=== PATIENT | female | born 1955 | race African-American/Black ===

== ENCOUNTER 2018-01-23 10:45 | Observation (INO) | payer OTHER ==
[2018-01-23] MEDS ORDERED: Nitroglycerin 2% Ointment 1 INCH/1 GM Packet ONE (11:16)
[2018-01-23 11:22] LABS: #Basophils 0.1 thou/uL (0.0-0.2); #Eosinphils 0.4 thou/uL (0.0-0.7); #Lymphocytes 1.8 thou/uL (1.20-3.40); #Monocytes 1.1 thou/uL (0.11-0.59); #Neutrophils 6.2 thou/uL (1.40-6.50); %Eosinophils 3.7 % (0.0-10.0); %Monocytes 11.8 % (0.0-10.0); %Neutrophils 64.4 % (42.0-75.0); Mean Corpuscular HGB CONC 32.2 g/dL (32.0-36.0); Mean Corpuscular Hemoglobin 27.9 pg (27.0-31.0); Mean Corpuscular Volume 86.6 fl (81.0-99.0); Mean Platelet Volume 7.3 fL (7.4-10.4); Platelet Count 281 thou/uL (130-400); RBC Distribution Width 13.7 % (11.5-14.5); White Blood Cell (WBC) Count 9.6 thou/uL (4.8-10.8)
--- NOTE | 2018-01-23 11:23 | RAD ---
PORTABLE CHEST: Date: 01/23/18 PROVIDED CLINICAL HISTORY: Chest pain and shortness of breath. FINDINGS: Cardiac and mediastinal silhouette is within normal limits. Evaluation is limited by patient both hab itus. There is prominence of the pulmonary vasculature and pulmonary interstitium. Air space disease at the right lung base is suspected. No pleural fluid or pneumothorax evident. IMPRESSION: 1. Right basilar air space disease which may reflect pneumonia or edema. 2. Pulmonary vascular congestion suggests congestive failure. POS: NOAHH
[2018-01-23 11:39] LABS: ALT (SGPT) 14 U/L (8-55); AST (SGOT) 16 U/L (5-34); Albumin 3.7 g/dL (3.4-4.8); Alkaline Phosphatase 69 U/L (40-150); Anion Gap 15 mmol/L (10-20); BUN (Urea Nitrogen) 24 mg/dL (9.8-20.1); Bilirubin, Total 0.3 mg/dL (0.2-1.2); CK (CPK) 125 U/L (29-168); Calc. Creatinine Clearance 0 mL/min (70-130); Calcium 9.6 mg/dL (7.8-10.44); Carbon Dioxide 26 mmol/L (23-31); Chloride 105 mmol/L (98-107); Estimated GFR-MDRD 35; Globulin 3.9 g/dL (2.4-3.5); Glucose 157 mg/dL (80-115); Lipase 23 U/L (8-78); Potassium 4.8 mmol/L (3.5-5.1); Protein, Total 7.6 g/dL (6.0-8.3); Sodium 141 mmol/L (136-145)
[2018-01-23 11:43] LABS: CKMB 2.4 ng/mL (0-6.6); Troponin I Less than 0.010 ng/mL (< 0.028)
[2018-01-23] MEDS ORDERED: Furosemide 20 MG/2 ML VIAL ONE (12:50)
--- NOTE | 2018-01-23 13:06 | PDOC.FPRHP ---
- History of Present Illness Chief Complaint: New onset CHF History of Present Illness: This stable 62 yo F is being admitted to the hospital for workup new onset CHF. She has a PMH including obesity, DM2, CKD III, HTN, and HLD. She states that this morning while at work she experienced sudden onset of chest pain on the left side of her chest described as "someone sitting on me." She states the pain was at worst about 8/10. It was relieved with nitro but not with rest. It lasted about 45 min per her report. She did experience shortness of breath but not diaphoresis. She has never had pain like this before. She has been having decreased exercise tolerance for the last week or so and denies orthopnea. She has noticed some increased swelling for the last month or so. She was scheduled for outpatient stress and echo at the end of this month. ED Course: nitro, lasix, ASA - Allergies/Adverse Reactions Allergies Allergy/AdvReac Type Severity Reaction Status Date / Time No Known Drug Allergies Allergy Verified 01/23/18 13:43 - Home Medications Medication Instructions Recorded Confirmed Type Aspirin [Aspir-Low] 81 mg PO DAILY 01/23/18 01/23/18 History Atorvastatin Calcium [Lipitor] 10 mg PO DAILY 01/23/18 01/23/18 History Benazepril HCl [Benazepril HCl] 1 tab PO BID 01/23/18 01/23/18 History Cholecalciferol (Vitamin D3) 1,000 unit PO DAILY 01/23/18 01/23/18 History [Vitamin D] Estradiol [Estradiol] 1 tab PO DAILY 01/23/18 01/23/18 History Hydrochlorothiazide 1 tab PO BID 01/23/18 01/23/18 History [Hydrochlorothiazide] NIFEdipine [Nifedipine ER] 60 mg PO DAILY 01/23/18 01/23/18 History Vit,Rakan 74/Iron/Folic 1 tab PO DAILY 01/23/18 01/23/18 History [Vol-Plus Tablet] glyBURIDE [Glyburide] 1 tab PO BID 01/23/18 01/23/18 History hydrALAZINE HCl [Hydralazine HCl] 1 tab PO BID 01/23/18 01/23/18 History metFORMIN HCl [Metformin HCl] 1 tab PO BID 01/23/18 01/23/18 History - History PMHx: DM, CKDIII, HTN, HLD PSHx: hysterectomy FHx: no heart disease, ovarian cancer in mother Social: denies tobacco, alcohol, or drugs - Review of Systems General: denies: fever/chills, weight/appetite/sleep changes Eyes: denies: eye pain, vision changes ENT: denies: nasal congestion, rhinorrhea Respiratory: reports: exercise intolerance. denies: cough, shortness of breath Cardiovascular: reports: chest pain, palpitation, edema. denies: orthopnea Gastrointestinal: reports: nausea. denies: vomiting, diarrhea, constipation, abdominal pain Genitourinary: denies: incontinence, dysuria Skin: denies: rashes, itching Musculoskeletal: reports: swelling. denies: pain, arthritis/arthralgias Neurological: denies: numbness, weakness Psychological: denies: anxiety, depression - Vital signs BP: [134/86] HR: [90] RR: [18] Tmax: [98.5] Pox: [96]% on [RA] Wt: [35.1 kg] - Physical Exam Constitutional: NAD HEENT: normocephalic and atraumatic, PERRLA, MMM Neck: supple, FROM Heart: RRR, normal S1/S2, pulses present -Heart: +1 edema on the left lower extremity Lungs: CTAB, good air movement, no rales/rhonchi Abdomen: soft, non-tender, bowel sounds present, no masses/distention Musculoskeletal: normal structure, ROM grossly normal Neurological: no focal deficit, CN II-XII intact Skin: no rash/lesions, capillary refill <2 seconds Heme/Lymphatic: no unusual bruising or bleeding, no petechia Psychiatric: normal mood and affect, good judgment and insight FMR H&P: Results - Labs Result Diagrams: 01/24/18 03:46 01/24/18 03:46 Lab results: WBC 9.6 thou/uL (4.8-10.8) 01/23/18 11:13 Hgb 10.0 g/dL (12.0-16.0) L 01/23/18 11:13 Hct 31.1 % (36.0-47.0) L 01/23/18 11:13 MCV 86.6 fl (81.0-99.0) 01/23/18 11:13 Plt Count 281 thou/uL (130-400) 01/23/18 11:13 Neutrophils % 64.4 % (42.0-75.0) 01/23/18 11:13 Sodium 141 mmol/L (136-145) 01/23/18 11:13 Potassium 4.8 mmol/L (3.5-5.1) 01/23/18 11:13 Chloride 105 mmol/L (98-107) 01/23/18 11:13 Carbon Dioxide 26 mmol/L (23-31) 01/23/18 11:13 BUN 24 mg/dL (9.8-20.1) H 01/23/18 11:13 Creatinine 1.79 mg/dL (0.6-1.1) H 01/23/18 11:13 Glucose 157 mg/dL (80-115) H 01/23/18 11:13 Calcium 9.6 mg/dL (7.8-10.44) 01/23/18 11:13 Total Bilirubin 0.3 mg/dL (0.2-1.2) 01/23/18 11:13 AST 16 U/L (5-34) 01/23/18 11:13 ALT 14 U/L (8-55) 01/23/18 11:13 Alkaline Phosphatase 69 U/L (40-150) 01/23/18 11:13 Creatine Kinase 125 U/L (29-168) 01/23/18 11:13 CK-MB (CK-2) 2.4 ng/mL (0-6.6) 01/23/18 11:13 B-Natriuretic Peptide 565.3 pg/mL (0-100) H 01/23/18 11:13 Serum Total Protein 7.6 g/dL (6.0-8.3) 01/23/18 11:13 Albumin 3.7 g/dL (3.4-4.8) 01/23/18 11:13 Lipase 23 U/L (8-78) 01/23/18 11:13 - EKG Interpretation EKG: sinus rhythm, SD interval 202, no st changes FMR H&P: A/P - Problem List (1) CHF (congestive heart failure) Current Visit: Yes Status: Acute Code(s): I50.9 - HEART FAILURE, UNSPECIFIED (2) HLD (hyperlipidemia) Current Visit: Yes Status: Acute Code(s): E78.5 - HYPERLIPIDEMIA, UNSPECIFIED (3) HTN (hypertension) Current Visit: Yes Status: Acute Code(s): I10 - ESSENTIAL (PRIMARY) HYPERTENSION (4) CKD stage 3 due to type 2 diabetes mellitus Current Visit: Yes Status: Acute Code(s): E11.22 - TYPE 2 DIABETES MELLITUS W DIABETIC CHRONIC KIDNEY DISEASE; N18.3 - CHRONIC KIDNEY DISEASE, STAGE 3 ( MODERATE) (5) DM2 (diabetes mellitus, type 2) Current Visit: Yes Status: Acute - Plan # New onset CHF - diagnosed in clinic, scheduled for outpt. workup at the end of the month - Echo, poncho stress fabien AM - Consult cardiology in the AM - Lasix 40 IV in ED, 40 mg IV tonight - Atorvastatin 40, ASA - hold BB 2/2 stress # Chest pain - inital trop neg - trend - EKG unremarkable - Nitropaste PRN # Leg swelling - bilateral doppler US # HTN - home meds # HLD - home meds # DM2 - metformin 1000mg BID - Glyburide 5mg # CKD 3 - trend cr # PPx - lovenox, SCDs # Code - full # Diet - HH, NPO at midnight FMR H&P: Upper Level - Pertinent history This is a 62 yo AAF who p/w cc of chest pain this am. While cooking at work at approx 545 this am, pt began to feel chest pressure like "someone was sitting on me" which was substernal and a/w SOB. No diaphoresis, nausea, dizziness, syncope. Came to ED due to concerning sxs, which were relieved with nitro administration in ED. Last stress "a long time ago" and was reportedly abnormal per pt, but does not recall having stents placed/cath performed. She also endorses 2 wks of ACKERMAN and exercise intolerance, as well as LE edema. No baseline orthopnea aside from last night. Denies PND. She has been seen in the outpt setting (01/14/18) by Dr. Dowd who suspected CHF and switched HCTZ to 20mg lasix recently. He had planned for outpt lexiscan stress and echo upcoming. States her sxs were concerning bc this is what her mother experienced with "fluid on her lungs" which is why she sought care this am. PMHx obesity, IDDM2, CKD III, HTN, HLD. - Pertinent findings Pertinent PE: obese, pleasant well-appearing female in no respiratory distress with diminshed breath sounds in bilateral lower lobes with faint crackles in Rt lung base heart- RRR no mrg; LE- trace edema in RLE, 2+ edema in LLE VSS, no hypoxia Labs: nml CBC CMP sig for Cr = 1.79, gfr = 35 (at baseline) CE # 1 neg BNP 565 CXR- diffuse pulmonary vascular congestion with blunted costophrenic angles bilaterally and cardiomegaly (increased since 2016 CXR comparison). - Plan Date/Time: 01/23/18 1305 62yo AAF w/ PMHx IDDM2, HTN, HLD, tachycardia (unspecified per pt), and CKD 3 who presents with: 1) New onset suspected CHF- remote echo in 2006 per records shows EF 40% and consulted with Dr. Dowd recently to work up for CHF but pt has been awaiting outpt studies. Hx c/w clinical CHF given ACKERMAN + LE edema and risk factors as well as CXR findings, physical exam, and elevated BNP. Will treat as CHF exacerbation in hospital-- daily wts, strict I&Os, lasix IV and monitor labs. Order TTE. consult cards in am. 2) Typical chest pain- concern for underlying CAD given new onset CHF and recent chest pressure resolved with ntg. will trend troponins & EKGs, continue symptomatic mgmt with ACS rx and order lexiscan stress test. 3) HTN- continue home meds. HH diet. 4) IDDM2- continue insulin per home mgmt. DM diet. 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 6) CKD3- monitor BMP qd given CKD3 and needed diuresis for CHF to avoid worsened renal fxn. monitor. 7) HLD- high intensity statin. I, [Naila Valdez DO], have evaluated this patient and agree with findings/plan as outlined by internal control analyst resident. Pertinent changes/additions are listed in my addendum. Attending Addendum - Attending Addendum Date/Time: 01/24/18 0930 I personally evaluated the patient and discussed the management with Dr. Bojorquez and José Miguel. I agree with the History, Examination, Assessment and Plan documented above with any addition or exceptions noted below.
[2018-01-23] MEDS ORDERED: Enoxaparin Sodium 30 MG/0.3 ML SYRINGE SC SCH (13:42)
[2018-01-23] MEDS ORDERED: Ondansetron ODT 4 MG TAB PO PRN (13:42)
[2018-01-23 13:46] VITALS: BMI 35.1
[2018-01-23 14:28] LABS: Troponin I Less than 0.010 ng/mL (< 0.028)
[2018-01-23] MEDS ORDERED: Dextrose 5% in Water 1,000 ML IV PRN (15:02)
[2018-01-23] MEDS ORDERED: Dextrose 50% Abboject 50 ML SYRINGE SLOW IVP PRN (15:02)
[2018-01-23] MEDS ORDERED: HumaLOG 300 UNITS/3 ML VIAL SC PRN ×2 (15:02)
[2018-01-23] MEDS ORDERED: Nitroglycerin 2% Ointment 1 INCH/1 GM Packet TOP PRN (15:05)
[2018-01-23] MEDS ORDERED: Nitroglycerin 0.4 MG TAB (25 Tab Bottle) SL PRN (15:05)
[2018-01-23 15:37] LABS: Hemoglobin A1c 6.8 % (4.0-6.0)
[2018-01-23] MEDS ORDERED: Furosemide 40 MG/4 ML VIAL SLOW IVP SCH (17:15)
[2018-01-23] MEDS: metFORMIN 500 MG TAB PO SCH (17:21)
[2018-01-23 17:55] LABS: Troponin I Less than 0.010 ng/mL (< 0.028)
--- NOTE | 2018-01-23 17:55 | ULT ---
BILATERAL LOWER EXTERMITY VENOUS DOPPLE ULTRASOUND: History: Bilateral lower extremity edema, left greater than right. New diagnosis of CHF. Technique: Grayscale, color flow, and spectral doppler imaging of the dependent systems of the lower extremities were performed bilaterally. 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 IMPRESSION: No evidence of DVT in either lower extremity. POS: MONAE
--- NOTE | 2018-01-23 22:17 | PDOC.EVN ---
Event Note - Event Note Event Note: Attending note 62 y/o female with PMH HFrEF, HTN, CKD, DM presents with midline substernal chest pain described as someone sitting on her that started while she was going out to her car. Denies any nausea or diaphoresis with the episode, no radiation. Did have associated feet heaviness. Has never happend before. Is now resolved. For PMH/PSH/meds/all/SH/FH please see Dr. Bojorquez's note. Exam: vitals reviewed RRR s M, bilateral LE pitting edema CTAB s w/r/r at the time I saw her BS+, NTTP A/P: Chest pain -medical management -cardiology consultation in AM HFrEF with exacerbation -lasix -continue medical management HTN, DM -home meds, monitor Low TSH -check FT4 DVT/gi ppx
[2018-01-23] MEDS: hydrALAZINE 25 MG TAB PO SCH (22:20)
[2018-01-23] MEDS: Famotidine 20 MG TAB PO SCH (22:20)
[2018-01-24 05:02] LABS: Anion Gap 10 mmol/L (10-20); BUN (Urea Nitrogen) 26 mg/dL (9.8-20.1); Calc. Creatinine Clearance 45 mL/min (70-130); Calcium 9.1 mg/dL (7.8-10.44); Carbon Dioxide 30 mmol/L (23-31); Cardiac Risk 4.4 (Less than 4.5); Chloride 103 mmol/L (98-107); Cholesterol 172 mg/dl (< 200 Desired); Estimated GFR-MDRD 32; Glucose 151 mg/dL (80-115); HDL Cholesterol 39 mg/dL (>60 Neg Risk); LDL Cholesterol, Calculated 109 mg/dL; Potassium 4.1 mmol/L (3.5-5.1); Sodium 139 mmol/L (136-145); Triglycerides 122 mg/dL (Less than 150)
[2018-01-24 05:12] LABS: Band 1 % (5-11); Eosinophils 2 % (0-10); Hemoglobin 9.2 g/dL (12.0-16.0); Lymphocytes 27 % (21-51); MDiff Complete? YES; Mean Corpuscular HGB CONC 32.7 g/dL (32.0-36.0); Mean Corpuscular Hemoglobin 27.9 pg (27.0-31.0); Mean Corpuscular Volume 85.2 fl (81.0-99.0); Monocytes 15 % (0-10); Neutrophil 53 % (42-75); PLT Morphology Comment Appears Adequate; Platelet Count 268 thou/uL (130-400); RBC Distribution Width 13.5 % (11.5-14.5); Red Blood Cell (RBC) Count 3.29 mill/uL (4.20-5.40); White Blood Cell (WBC) Count 7.2 thou/uL (4.8-10.8)
--- NOTE | 2018-01-24 06:03 | PDOC.FM ---
- Subjective Subjective: This morning the patient states she is having no chest pain or shortness of breath. She states is able to ambulate without difficulty. Denies cough. Asks appropriate questions about stress test and echo. Questions are answered. - Objective Vital Signs & Weight: Vital Signs (12 hours) Temp Pulse Resp BP Pulse Ox 01/24/18 03:45 99 F 99 16 114/56 L 01/23/18 22:20 99 144/71 H 01/23/18 20:05 98.8 F 99 16 144/71 H 01/23/18 19:52 97 Weight Weight 90.22 kg I&O: 01/22/18 01/23/18 01/24/18 05:59 06:59 06:59 Intake Total 240 Output Total 1400 Balance -1160 Result Diagrams: 01/24/18 03:46 01/24/18 03:46 <Issa Bojorquez - Last Filed: 01/24/18 08:24> - Objective Vital Signs & Weight: Vital Signs (12 hours) Temp Pulse Pulse Pulse Resp BP BP 01/24/18 15:29 98.2 F 92 16 01/24/18 13:21 100 109 H 147/69 H 01/24/18 09:57 99 01/24/18 08:00 99 F 99 16 01/24/18 07:57 98.7 F 97 18 132/62 BP BP Pulse Ox Pulse Ox Pulse Ox 01/24/18 15:29 137/71 97 01/24/18 13:21 162/73 H 97 99 01/24/18 09:57 01/24/18 08:00 01/24/18 07:57 98 Weight Weight 90.22 kg I&O: 01/23/18 01/24/18 01/25/18 06:59 06:59 06:59 Intake Total 240 Output Total 1400 Balance -1160 Result Diagrams: 01/24/18 03:46 01/24/18 03:46 <Taj Valero - Last Filed: 01/24/18 17:27> Phys Exam - Physical Examination Constitutional: NAD HEENT: PERRLA, moist MMs Neck: no nodes, full ROM Respiratory: no wheezing, clear to auscultation bilateral Cardiovascular: RRR, no significant murmur Gastrointestinal: soft, non-tender, no distention, positive bowel sounds Musculoskeletal: no edema, pulses present Neurological: non-focal, moves all 4 limbs Lymphatic: no nodes Psychiatric: normal affect, A&O x 3 Skin: no rash, cap refill <2 seconds <Issa Bojorquez - Last Filed: 01/24/18 08:24> Dx/Plan (1) CHF (congestive heart failure) Code(s): I50.9 - HEART FAILURE, UNSPECIFIED Status: Acute (2) HLD (hyperlipidemia) Code(s): E78.5 - HYPERLIPIDEMIA, UNSPECIFIED Status: Acute (3) HTN (hypertension) Code(s): I10 - ESSENTIAL (PRIMARY) HYPERTENSION Status: Acute (4) CKD stage 3 due to type 2 diabetes mellitus Code(s): E11.22 - TYPE 2 DIABETES MELLITUS W DIABETIC CHRONIC KIDNEY DISEASE; N18.3 - CHRONIC KIDNEY DISEASE, STAGE 3 (MODERATE) Status: Acute (5) DM2 (diabetes mellitus, type 2) Status: Acute - Plan Plan: # New onset CHF - diagnosed in clinic, scheduled for outpt. workup at the end of the month - Echo, poncho stress fabien AM - Lasix 40 IV in ED, 40 mg IV tonight - Atorvastatin 40, ASA - hold BB 2/2 stress - Dr. Dowd is consulted # Chest pain - trop neg x3 - EKG unremarkable - Nitropaste PRN # subclinical hyperthyroidism - TSH low at .07, Free T4 1.1 - check free T3, thyroid US # Leg swelling - bilateral doppler US negative for DVT # HTN - home meds # HLD - home meds # DM2 - metformin 1000mg BID - Glyburide 5mg # CKD 3 - trend cr # PPx - lovenox, SCDs # Code - full # Diet - HH after stress <Issa Bojorquez - Last Filed: 01/24/18 08:24> Attending Addendum - Attending Addendum Date/Time: 01/24/18 1727 I personally evaluated the patient and discussed the management with Dr. Bojorquez I agree with the History, Examination, Assessment and Plan documented above with any addition or exceptions noted below. <Taj Valero - Last Filed: 01/24/18 17:27>
[2018-01-24] MEDS ORDERED: Enoxaparin Sodium 30 MG/0.3 ML SYRINGE SC SCH (09:00)
[2018-01-24] MEDS ORDERED: glyBURIDE 5 MG TAB PO SCH (09:00)
[2018-01-24] MEDS: hydrALAZINE 25 MG TAB PO SCH ×2 (09:56→21:26)
[2018-01-24] MEDS: metFORMIN 500 MG TAB PO SCH ×2 (09:56→16:51)
[2018-01-24] MEDS: Atorvastatin Calcium 40 MG TAB PO SCH (09:56)
[2018-01-24] MEDS: NIFEdipine XL 60 MG TAB PO SCH (09:57)
[2018-01-24] MEDS: Prenatal Vitamin 1 TAB PO SCH (09:57)
[2018-01-24 12:20] LABS: Iron 21 ug/dL (50-170); Iron Binding Capacity, Total 374 mcg/dL (265-497); Transferrin, Serum 299 mg/dL (173-360)
[2018-01-24 12:54] LABS: Folate (Folic Acid) 16.8 ng/mL (7.0-31.4)
[2018-01-24] MEDS ORDERED: Furosemide 40 MG/4 ML VIAL SLOW IVP SCH (14:00)
--- NOTE | 2018-01-24 15:26 | ULT ---
THYROID SONOGRAM: History: Hyperthyroidism. FINDINGS: Right thyroid lobe is 5.0 cm. Left is 5.0 cm. The isthmus is 0.3 cm. Multiple small solid and cystic nodules are scattered about each thyroid lobe. The largest is at the inferior pole left thyroid lobe measuring up to 0.7 cm. No dominant aggressive nodule is apparent. IMPRESSION: Tiny nonspecific bilateral thyroid lobe nodules. No significant abnormalities are demonstrated. POS: MONAE
[2018-01-24] MEDS ORDERED: Regadenoson 0.4 MG/5 ML SYRINGE ONE (16:46)
--- NOTE | 2018-01-24 20:01 | CON ---
DATE OF CONSULTATION: 01/24/2018 HISTORY OF PRESENT ILLNESS: Komal Snyder is a 62-year-old black female who I saw once in the offic e on 01/14/2018. She stated that in 2006, she had an echo with ejection fraction of 40%. After 2 we eks prior to my evaluation, she stated that she had been having increasing dyspnea on exertion at two blocks and also increasing ankle edema. It will resolve in 1-2 minutes and was not associated with any chest discomfort. Hydrochlorothiazide was stopped and she was placed on furosemide 20 mg q.a.m. She stated that her peripheral edema had improved. With her exertional shortness of breath and find ing of mild bilateral lower extremity edema, she was to undergo echocardiography as well as a cardiac PET scan to evaluate for possible coronary artery disease. Medications were changed in the office due to her peripheral edema -- she was started on hydralazine 50 mg b.i.d. and nifedipine 60 ER daily was stopped. Before her outpatient evaluation could be performed, yesterday at work, she had exertional chest pres sure lasting approximately 45 minutes associated with shortness of breath. She was brought to the em ergency room, given intravenous Lasix with improvement in her symptoms, as well as sublingual nitrogl ycerin. She denies any chest discomfort at the present time. PAST MEDICAL HISTORY: Hypertension, diabetes, hypercholesterolemia, chronic kidney disease. MEDICATIONS: Hydralazine 75 t.i.d., amlodipine/valsartan 5/320, aspirin 81 daily, carvedilol 12.5 mg t.i.d., etodolac 500 p.r.n., fentanyl, Duragesic 500 mcg q. 2 days, Advair Diskus, gabapentin 300 t. i.d., insulin, DuoNeb q.4 hours p.r.n., metformin 500 daily, rosuvastatin 10 at bedtime, Zanaflex 4 m g tablet daily. ALLERGIES: PENICILLIN. OPERATIONS: None. FAMILY HISTORY: Negative for coronary artery disease. SOCIAL HISTORY: She does not smoke or drink. REVIEW OF SYSTEMS: Twelve point review of systems unremarkable. PHYSICAL EXAMINATION: VITAL SIGNS: 146/53, pulse of 83, regular rhythm. HEENT: PERRL. NECK: Supple. CHEST: Clear. CARDIAC: S1, S2 normal, without any S3, S4 or murmurs. ABDOMEN: Normal bowel sounds, without tenderness, organomegaly. The abdomen is obese. EXTREMITIES: Revealed 1+ pretibial edema. No clubbing or cyanosis. NEUROLOGIC: Grossly intact. SKIN: Warm and dry. LABORATORY DATA: EKG reveals normal sinus rhythm with left bundle branch block. Chest x-ray reveals increased pulmonary vascularity. White count 7,200, hemoglobin 9.2, hematocrit 28.0, platelets 268, 000. Iron 21, TIBC 374. Sodium 139, potassium 4.1, chloride 103, carbon dioxide 30, BUN 26, creatin ine 1.92. Cholesterol 172, triglycerides 122, HDL 39, LDL 109. Cardiac enzymes were unremarkable. BNP 565.3. Echocardiogram revealed ejection fraction of 35%-40% with this being a technically difficult study, m oderate mitral regurgitation, mild to moderate tricuspid regurgitation. IMPRESSION: 1. Acute on chronic systolic congestive heart failure. 2. Hypertension. 3. Hyperlipidemia, poorly controlled. 4. Diabetes. PLAN: Patient will continue to be diuresed and her renal function needs to be watched very closely. She has got stress portion of an adenosine Cardiolite scan, resting portion will be performed tomorr ow. Her cholesterol is under poor control, unclear what she is taking in the office. She said she w as taking atorvastatin 10 and on her admission medications that she is taking Crestor 10. Daily basi c metabolic profiles need to be obtained.
[2018-01-24] MEDS: Famotidine 20 MG TAB PO SCH (21:26)
[2018-01-25 05:21] LABS: Anion Gap 11 mmol/L (10-20); BUN (Urea Nitrogen) 25 mg/dL (9.8-20.1); Calc. Creatinine Clearance 48 mL/min (70-130); Calcium 8.8 mg/dL (7.8-10.44); Carbon Dioxide 29 mmol/L (23-31); Chloride 107 mmol/L (98-107); Estimated GFR-MDRD 36; Glucose 169 mg/dL (80-115); Potassium 4.3 mmol/L (3.5-5.1); Sodium 143 mmol/L (136-145)
[2018-01-25] MEDS ORDERED: Furosemide 40 MG/4 ML VIAL SLOW IVP SCH (06:00)
--- NOTE | 2018-01-25 07:45 | PDOC.FM ---
- Subjective Subjective: This morning the patient states she is feeling well overall. She was able to walk up and down the hallway with PT and she is looking forward to seeing how far she can go today. She denies any chest pain or palpitations. She denies shortness of breath or cough. - Objective Vital Signs & Weight: Vital Signs (12 hours) Temp Pulse Resp BP 01/25/18 04:16 98.6 F 97 16 141/68 H 01/24/18 21:26 103 H 144/66 H 01/24/18 19:59 99.1 F 103 H 16 Weight Weight 90.22 kg I&O: 01/24/18 01/25/18 01/26/18 06:59 06:59 06:59 Intake Total 240 720 Output Total 1400 800 Balance -1160 -80 Result Diagrams: 01/24/18 03:46 01/25/18 04:23 Phys Exam - Physical Examination Constitutional: NAD HEENT: PERRLA, moist MMs Neck: no nodes, full ROM Respiratory: no wheezing, clear to auscultation bilateral Cardiovascular: RRR, no significant murmur Gastrointestinal: soft, non-tender, no distention, positive bowel sounds Musculoskeletal: no edema, pulses present Neurological: non-focal, moves all 4 limbs Lymphatic: no nodes Psychiatric: normal affect, A&O x 3 Skin: no rash, cap refill <2 seconds Dx/Plan (1) CHF (congestive heart failure) Code(s): I50.9 - HEART FAILURE, UNSPECIFIED Status: Acute (2) HLD (hyperlipidemia) Code(s): E78.5 - HYPERLIPIDEMIA, UNSPECIFIED Status: Acute (3) HTN (hypertension) Code(s): I10 - ESSENTIAL (PRIMARY) HYPERTENSION Status: Acute (4) CKD stage 3 due to type 2 diabetes mellitus Code(s): E11.22 - TYPE 2 DIABETES MELLITUS W DIABETIC CHRONIC KIDNEY DISEASE; N18.3 - CHRONIC KIDNEY DISEASE, STAGE 3 (MODERATE) Status: Acute (5) DM2 (diabetes mellitus, type 2) Status: Acute - Plan Plan: # New onset CHF - diagnosed in clinic, scheduled for outpt. workup at the end of the month - Echo yesterday EF 35-40%, resting stress today - Lasix 40 IV daily - Atorvastatin 40, ASA - hold BB 2/2 stress - Dr. Dowd is consulted # Chest pain - trop neg x3 - EKG unremarkable - Nitropaste PRN # subclinical hyperthyroidism - TSH low at .07, Free T4 & T3 WNL - thyroid shows only cystic nodules - Normal TSH in clinic - f/u outpt. # Leg swelling - bilateral doppler US negative for DVT # HTN - home meds # HLD - home meds # DM2 - metformin 1000mg BID - Glyburide 5mg # CKD 3 - 1.79 -> 1.92 -> 1.74 - trend cr # PPx - lovenox, SCDs # Code - full # Diet - HH after stress Dispo: possibly home today, pending PT eval for rehab, stress results
[2018-01-25] MEDS ORDERED: Ferrous Sulfate 325 MG TAB PO SCH (08:00)
[2018-01-25] MEDS ORDERED: Enoxaparin Sodium 40 MG/0.4 ML SYRINGE SC SCH (09:00)
[2018-01-25] MEDS: Atorvastatin Calcium 40 MG TAB PO SCH (09:01)
[2018-01-25] MEDS: NIFEdipine XL 60 MG TAB PO SCH (09:01)
[2018-01-25] MEDS: metFORMIN 500 MG TAB PO SCH (09:01)
[2018-01-25] MEDS: Prenatal Vitamin 1 TAB PO SCH (09:01)
[2018-01-25] MEDS: hydrALAZINE 25 MG TAB PO SCH (09:02)
--- NOTE | 2018-01-25 11:02 | NM ---
CARDIAC SPECT: HISTORY: A 62-year-old black female with CHF, end-stage renal disease, diabetes, and dyslipidemia. TECHNIQUE: A myocardial perfusion scan was performed using the single-isotope 2-day protocol with 30 mCi Technet ium 99m sestamibi for rest and stress images. Pharmacologic stress with LexiScan was performed and in terpreted by the clinical appeals auditor. FINDINGS: Homogeneous tracer distribution is seen in the myocardial segments on stress and rest images GATED SPECT LVEF: 34%. WALL MOTION EXAM: Global hypokinesis. IMPRESSION: No evidence of reversible ischemia. POS: MONAE
[2018-01-25 12:02] VITALS: BP 132/62; TEMP 98.7
--- NOTE | 2018-01-25 21:19 | DIS-2 ---
DATE OF ADMISSION: 01/23/2018 DATE OF DISCHARGE: 01/25/2018 RESIDENT: Issa Bojorquez M.D. ADMITTING ATTENDING: Davian Barron M.D. DISCHARGE ATTENDING: Mitch Toscano M.D. CONSULTS: Dr. Dowd, Cardiology. PROCEDURES: Echocardiogram shows EF 35%-40%. Nuclear stress test - global hypokinesis, EF 34%, no r eversible ischemia. PRIMARY DIAGNOSIS: New onset congestive heart failure. SECONDARY DIAGNOSES: Chest pain, subclinical hyperthyroidism, hypertension, hyperlipidemia, type 2 d iabetes, chronic kidney disease stage 3. DISCHARGE MEDICATIONS: Aspirin 81 mg daily, atorvastatin 40 mg daily, carvedilol 6.25 mg b.i.d., nabor rae sulfate 325 mg daily, Lasix 40 mg daily, hydralazine 1 tab b.i.d. 50 mg, metformin 1000 mg b.i.d ., nifedipine 60 mg daily, estradiol daily, glyburide 5 mg daily, and hydrochlorothiazide 12.5 mg katy ly. DISCONTINUED MEDICATIONS: Benazepril. HISTORY OF PRESENT ILLNESS AND HOSPITAL COURSE: This is a 62-year-old female, who was admitted for [facility] of new onset congestive heart failure. Past medical history included obesity, DM2, CKD stage 3 , hypertension, and hyperlipidemia. She came in with chest pain that started on the morning of admis jessica. Troponins were negative x3. The chest pain lasted about 45 minutes. She had shortness of nic ath, but no diaphoresis. She had orthopnea and decreased exercise tolerance for the last week or so. The patient received IV Lasix in the ED. She was never hypoxic. Echocardiogram showed EF of 35%-4 0%. Stress test showed nonreversible ischemia. Patient was started on Coreg, increased Lasix dose, and ferrous sulfate. She was started on the ferrous sulfate secondary to anemia. Iron studies sugge sted iron deficiency anemia. TSH was low at 0.07 on this admission. Free T3 and T4 were normal. Th yroid ultrasound showed some non-significant cysts. Dr. Dowd will follow up in 6 weeks. DISPOSITION: Stable. DISCHARGE INSTRUCTIONS: 1. Location: Home. 2. Diet: Heart healthy. 3. Activity: As tolerated. 4. Followup: Dr. Mary Arthur in 3 days, Dr. Ricardo Dowd in 4-6 weeks. Please follow up o n patient's blood pressure as she is being started on new blood pressure medication.
--- NOTE | 2018-01-29 12:37 | EKG ---
Test Reason : Blood Pressure : / mmHG Vent. Rate : 085 BPM Atrial Rate : 085 BPM P-R Int : 202 ms QRS Dur : 124 ms QT Int : 422 ms P-R-T Axes : -04 050 001 degrees QTc Int : 502 ms Normal sinus rhythm Anteroseptal infarct , age undetermined Abnormal ECG Confirmed by DENISE LAMAR, CAIO ([id number]), associate editor LONNIE FLEMING ([id number]) on 01/29/2018 12:36:07 PM Referred By: Confirmed By:CAIO WALKER MD
== END 2018-01-25 16:10 | disposition home or self-care (01) ==
LOC: ERS 10:45 → 2SW 13:03 → INTOOBSV 13:03
PROVIDERS: ADMIT Family Medicine; ATTEND Family Medicine
DX: I13.0 Hypertensive heart and chronic kidney disease with heart failure and stage 1 through stage 4 chronic kidney disease, or unspecified chronic kidney disease (principal); E11.22 Type 2 diabetes mellitus with diabetic chronic kidney disease; I50.23 Acute on chronic systolic (congestive) heart failure; N18.3 Chronic kidney disease, stage 3 (moderate); E05.80 Other thyrotoxicosis without thyrotoxic crisis or storm; E78.5 Hyperlipidemia, unspecified; D63.1 Anemia in chronic kidney disease; E78.00 Pure hypercholesterolemia, unspecified; E66.9 Obesity, unspecified; Z68.34 Body mass index [BMI] 34.0-34.9, adult; Z88.0 Allergy status to penicillin; Z79.82 Long term (current) use of aspirin; Z79.84 Long term (current) use of oral hypoglycemic drugs; Z79.899 Other long term (current) drug therapy; Z90.710 Acquired absence of both cervix and uterus
CPT/HCPCS: 36415; 36416; 71045; 76536; 78452; 80048; 80053; 80061; 82553; 82607; 82728; 82746; 83036; 83540; 83550; 83690; 83735; 83880; 84439; 84443; 84466; 84481; 84484; 85025; 93005; 93017; 93306; 93798; 93970; 94760; 96361; 96372; 96374; 96376; A4216; A9500; G0378; J1650; J1940; J2785

== ENCOUNTER 2018-06-21 13:01 | Emergency (ER) | payer OTHER ==
[2018-06-21] MEDS ORDERED: HYDROcodone/Acetaminophen 5/325 mg Tablet ONE (13:33)
--- NOTE | 2018-06-21 14:01 | RAD ---
TWO VIEWS RIGHT HIP: History: Right hip pain for four days radiating down leg and foot. FINDINGS: AP and frogleg views obtained and demonstrate no evidence of right hip fractures, subluxations, or [place] lesions. IMPRESSION: Normal two views right hip. POS: C
[2018-06-21] MEDS ORDERED: Dexamethasone 4 mg/ml Vial ONE ×2 (14:27→14:29)
== END 2018-06-21 14:45 | disposition home or self-care (01) ==
LOC: ERS 13:01
DX: M54.16 Radiculopathy, lumbar region (principal); E78.5 Hyperlipidemia, unspecified; I50.9 Heart failure, unspecified; N18.6 End stage renal disease; E11.22 Type 2 diabetes mellitus with diabetic chronic kidney disease; Z79.82 Long term (current) use of aspirin; Z79.899 Other long term (current) drug therapy; Z79.84 Long term (current) use of oral hypoglycemic drugs
CPT/HCPCS: J1100

== ENCOUNTER 2020-01-28 10:27 | Emergency (ER) | payer BC, MEDICARE, SELFPAY ==
[2020-01-28 11:34] LABS: ALT (SGPT) 21 U/L (8-55); AST (SGOT) 18 U/L (5-34); Albumin 3.9 g/dL (3.4-4.8); Alkaline Phosphatase 118 U/L (40-110); Anion Gap 16 mmol/L (10-20); BUN (Urea Nitrogen) 50 mg/dL (9.8-20.1); Bilirubin, Total 0.7 mg/dL (0.2-1.2); Calc. Creatinine Clearance 0 mL/min (70-130); Calcium 9.4 mg/dL (7.8-10.44); Carbon Dioxide 25 mmol/L (23-31); Chloride 105 mmol/L (98-107); Estimated GFR-MDRD 8; Globulin 3.7 g/dL (2.4-3.5); Glucose 140 mg/dL (80-115); Potassium 4.5 mmol/L (3.5-5.1); Protein, Total 7.6 g/dL (6.0-8.3); Sodium 141 mmol/L (136-145)
[2020-01-28] MEDS ORDERED: Metoclopramide HCl 10 MG TAB ONE (11:38)
== END 2020-01-28 12:46 | disposition home or self-care (01) ==
LOC: ERS 10:27
DX: T82.41XA Breakdown (mechanical) of vascular dialysis catheter, initial encounter (principal); E78.5 Hyperlipidemia, unspecified; E11.22 Type 2 diabetes mellitus with diabetic chronic kidney disease; N18.3 Chronic kidney disease, stage 3 (moderate); I50.9 Heart failure, unspecified; Z99.2 Dependence on renal dialysis
CPT/HCPCS: 36415; 80053; 83880; 93005